=== PATIENT | male | born 2000 | race Caucasian/White ===

== ENCOUNTER 2022-01-01 00:41 | Emergency (ER) | payer OTHER ==
[2022-01-01 01:01] LABS: RED BLOOD COUNT 5.27 M/UL (4.20-5.50); WHITE BLOOD COUNT 13.7 K/UL (4.5-11.0)
[2022-01-01 01:40] LABS: BUN/CREATININE RATIO 20 (0-10)
== END 2022-01-01 03:33 | disposition home or self-care (01) ==
LOC: ER1 00:41
PROVIDERS: Student in an Organized Health Care Education/Training Program
DX: R00.2 Palpitations (principal); F17.290 Nicotine dependence, other tobacco product, uncomplicated
CPT/HCPCS: 80053; 82550; 82553; 84484; 85025; 93005; 99285